=== PATIENT | male | born 1990 | race Caucasian/White ===

== ENCOUNTER 2022-02-24 15:16 | Emergency (ER) | payer OTHER ==
[2022-02-24] MEDS ORDERED: SODIUM CHLORIDE 0.9% 1,000 ML IV STA (16:14)
[2022-02-24] MEDS ORDERED: LORazepam 2 MG/ML INJ IV PRN ×3 (16:15)
[2022-02-24] MEDS ORDERED: THIAMINE 100 MG/ML 2 ML VIAL IM STA (16:15)
[2022-02-24 17:01] LABS: Basophils # (A) 0.1 k/uL (0-0.2); Basophils % (A) 1 %; Eosinophils % (A) 0 %; HCT 50.8 % (39.0-53.0); HGB 16.6 gm/dL (13.0-17.5); Lymphocytes # (A) 1.7 k/uL (1.0-4.8); Lymphocytes % (A) 14 %; MCH 33.4 pg (25.0-35.0); MCHC 32.7 g/dL (31.0-37.0); MCV 102.1 fL (80.0-100.0); Monocytes # (A) 0.7 k/uL (0-1.0); Monocytes % (A) 6 %; Neutrophils # (A) 9.2 k/uL (1.3-7.7); Neutrophils % (A) 77 %; Platelet Count 154 k/uL (150-450); RBC 4.98 m/uL (4.30-5.90); WBC 11.9 k/uL (3.8-10.6)
[2022-02-24 17:10] LABS: ALT 36 U/L (4-49); AST 65 U/L (17-59); African American GFR (CKD) >90 (>60 ml/min/1.73 sqM); Albumin 5.1 g/dL (3.5-5.0); Alkaline Phosphatase 65 U/L (38-126); Anion Gap 19 mmol/L; Blood Urea Nitrogen 12 mg/dL (9-20); Calcium 9.8 mg/dL (8.4-10.2); Carbon Dioxide 21 mmol/L (22-30); Chloride 101 mmol/L (98-107); Glucose 118 mg/dL (74-99); Lipase 187 U/L (23-300); Magnesium 1.7 mg/dL (1.6-2.3); Non-African American GFR(CKD) >90 (>60 ml/min/1.73 sqM); Potassium 3.5 mmol/L (3.5-5.1); Sodium 141 mmol/L (137-145); Total Bilirubin 0.7 mg/dL (0.2-1.3); Total Protein 7.6 g/dL (6.3-8.2)
[2022-02-24 17:19] LABS: Appearance,Urine Clear (Clear); Bilirubin,Urine Negative (Negative); Blood,Urine Small (Negative); Color,Urine Colorless; Glucose,Urine (UA) Negative (Negative); Ketones,Urine Negative (Negative); Leukocyte Esterase,Urine Negative (Negative); Nitrite,Urine Negative (Negative); PH, Urine 6.5 (5.0-8.0); Protein,Urine Negative (Negative); RBC,Urine <1 /hpf (0-5); Specific Gravity,Urine 1.003 (1.001-1.035); Urobilinogen,Urine <2.0 mg/dL (<2.0); WBC,Urine <1 /hpf (0-5)
[2022-02-24 17:20] VITALS: RESP 16
[2022-02-24] MEDS ORDERED: PANTOPRAZOLE 40 MG/10 ML VIAL IVP STA (17:43)
[2022-02-24 17:49] VITALS: PULSE 70; TEMP 98.7
--- NOTE | 2022-02-24 17:51 | ED ---
General Adult HPI - General Chief complaint: Nausea/Vomiting/Diarrhea Stated complaint: Hematemesis Time Seen by Provider: 02/24/22 15:58 Source: patient Mode of arrival: EMS - History of Present Illness Initial comments: Patient is a 31-year-old male with a past medical history of alcohol use disorder who presents to the emergency department with a chief complaint of vomiting blood. Patient states he was checking himself into [facility] today who sent him here for evaluation. Patient states he has been vomiting blood intermittently for the past 2 weeks. Blood scattered throughout the vomiting and is brown in color. Associated with nausea. Denies abdominal pain and chest pain. Denies blood in the stool. Patient states this issue occurred last year as well and went away on its own. Denies fever, chills, throat pain, back pain. Patient has been drinking a fifth of vodka a day since April. Last drink was this morning. Reports history of delirium tremens. Currently denies visual or auditory hallucinations. Patient has never had a withdrawal seizure. - Related Data Previous Rx's Medication Instructions Recorded Ondansetron Odt [Zofran Odt] 4 mg PO Q8HR PRN #15 tab 02/24/22 Pantoprazole [Protonix] 40 mg PO DAILY #14 tab 02/24/22 Allergies Allergy/AdvReac Type Severity Reaction Status Date / Time No Known Allergies Allergy Verified 02/24/22 15:28 Review of Systems ROS Statement: Those systems with pertinent positive or pertinent negative responses have been documented in the HPI. ROS Other: All systems not noted in ROS Statement are negative. Past Medical History Past Medical History: Hypertension, Seizure Disorder History of Any Multi-Drug Resistant Organisms: None Reported Past Surgical History: No Surgical Hx Reported Past Psychological History: Anxiety, Depression Smoking Status: Current every day smoker Past Alcohol Use History: Abuse, Daily, Heavy Past Drug Use History: Marijuana, Prescription Drug Abuse General Exam General appearance: alert, in no apparent distress Head exam: Present: atraumatic, normocephalic, normal inspection Eye exam: Present: normal appearance, PERRL, EOMI. Absent: scleral icterus, conjunctival injection, periorbital swelling Neck exam: Present: normal inspection, full ROM. Absent: tenderness Respiratory exam: Present: normal lung sounds bilaterally. Absent: respiratory distress, wheezes, rales, rhonchi, stridor, chest wall tenderness Cardiovascular Exam: Present: regular rate, normal rhythm, normal heart sounds. Absent: systolic murmur, diastolic murmur, rubs, gallop, clicks GI/Abdominal exam: Present: soft, normal bowel sounds. Absent: distended, tende rness, guarding, rebound, rigid Extremities exam: Present: other (no tremors ) Neurological exam: Present: alert, oriented X3, CN II-XII intact Psychiatric exam: Present: normal affect, normal mood Skin exam: Present: warm, dry, intact, normal color. Absent: rash Course Vital Signs 02/24/22 02/24/22 02/24/22 15:22 17:19 17:47 Temperature 98.8 F 98.7 F Pulse Rate 110 H 70 Respiratory 18 16 16 Rate Blood Pressure 140/100 132/95 O2 Sat by Pulse 95 100 Oximetry 02/24/22 17:56 Temperature 98.7 F Pulse Rate 70 Respiratory 16 Rate Blood Pressure 130/78 O2 Sat by Pulse 100 Oximetry Medical Decision Making - Medical Decision Making This is a 31-year-old male presenting with hematemesis and alcohol use. Laboratory studies obtained. CIWA scale initiated. Patient is not in alcohol withdrawal yet. Hemoglobin is stable at 16.6. Patient initially presents with high blood pressure and tachycardia however this resolved during emergency stay. Patient did not have any further episodes of vomiting. Patient does not have pain and can be discharged back to [facility]. He'll be sent home with Protonix and Zofran. Discussed alcohol cessation in detail. I will refer him to GI specialist for possible scope. Return parameters discussed. Dr. Cespedes is my attending. - Lab Data Result diagrams: 02/24/22 16:53 02/24/22 16:53 Lab Results 02/24/22 02/24/22 02/24/22 Range/Units 16:00 16:53 16:53 WBC 11.9 H (3.8-10.6) k/uL RBC 4.98 (4.30-5.90) m/uL Hgb 16.6 (13.0-17.5) gm/dL Hct 50.8 (39.0-53.0) % MCV 102.1 H (80.0-100.0) fL MCH 33.4 (25.0-35.0) pg MCHC 32.7 (31.0-37.0) g/dL RDW 12.0 (11.5-15.5) % Plt Count 154 (150-450) k/uL MPV 8.0 Neutrophils % 77 % Lymphocytes % 14 % Monocytes % 6 % Eosinophils % 0 % Basophils % 1 % Neutrophils # 9.2 H (1.3-7.7) k/uL Lymphocytes # 1.7 (1.0-4.8) k/uL Monocytes # 0.7 (0-1.0) k/uL Eosinophils # 0.0 (0-0.7) k/uL Basophils # 0.1 (0-0.2) k/uL Sodium 141 (137-145) mmol/L Potassium 3.5 (3.5-5.1) mmol/L Chloride 101 (98-107) mmol/L Carbon Dioxide 21 L (22-30) mmol/L Anion Gap 19 mmol/L BUN 12 (9-20) mg/dL Creatinine 0.76 (0.66-1.25) mg/dL Est GFR (CKD-EPI)AfAm >90 (>60 ml/min/1.73 sqM) Est GFR (CKD-EPI)NonAf >90 (>60 ml/min/1.73 sqM) Glucose 118 H (74-99) mg/dL Calcium 9.8 (8.4-10.2) mg/dL Magnesium 1.7 (1.6-2.3) mg/dL Total Bilirubin 0.7 (0.2-1.3) mg/dL AST 65 H (17-59) U/L ALT 36 (4-49) U/L Alkaline Phosphatase 65 (38-126) U/L Total Protein 7.6 (6.3-8.2) g/dL Albumin 5.1 H (3.5-5.0) g/dL Lipase 187 (23-300) U/L Urine Color Colorless Urine Appearance Clear (Clear) Urine pH 6.5 (5.0-8.0) Ur Specific [place] 1.003 (1.001-1.035) Urine Protein Negative (Negative) Urine Glucose (UA) Negative (Negative) Urine Ketones Negative (Negative) Urine Blood Small H (Negative) Urine Nitrite Negative (Negative) Urine Bilirubin Negative (Negative) Urine Urobilinogen <2.0 (<2.0) mg/dL Ur Leukocyte Esterase Negative (Negative) Urine RBC <1 (0-5) /hpf Urine WBC <1 (0-5) /hpf Disposition Clinical Impression: Hematemesis, ETOH abuse, Nausea Disposition: HOME SELF-CARE Condition: Good Instructions (If sedation given, give patient instructions): Hematemesis (ED) Additional Instructions: Please take medication as directed. It is very important to stop drinking alcohol. Follow-up with GI specialist who can perform a scope if bleeding continues. Return to the emergency department experience new, concerning, or worsening symptoms. Prescriptions: Pantoprazole [Protonix] 40 mg PO DAILY #14 tab Ondansetron Odt [Zofran Odt] 4 mg PO Q8HR PRN #15 tab PRN Reason: Nausea Is patient prescribed a controlled substance at d/c from ED?: No Referrals: Nonstaff,Physician [Primary Care Provider] - 1-2 days Melanie Baxter MD [STAFF PHYSICIAN] - 1-2 days
[2022-02-24 17:57] VITALS: BP 130/78
[2022-02-25] MEDS ORDERED: THIAMINE 100 MG TAB PO SCH (07:30)
== END 2022-02-24 18:00 | disposition home or self-care (01) ==
LOC: EC 15:16
DX: K92.0 Hematemesis (principal); F10.10 Alcohol abuse, uncomplicated; I10 Essential (primary) hypertension; Z86.69 Personal history of other diseases of the nervous system and sense organs; F17.200 Nicotine dependence, unspecified, uncomplicated
CPT/HCPCS: 36415; 80053; 83690; 83735; 85025; 81001; 99284; 96374; 96361; 96372; J3411; C9113

== ENCOUNTER 2022-03-03 16:52 | Emergency (ER) | payer OTHER ==
[2022-03-03] MEDS ORDERED: LORazepam 2 MG/ML INJ IV STA (17:09)
--- NOTE | 2022-03-03 17:32 | ED ---
General Adult HPI - General Chief complaint: Seizure Stated complaint: Seizure Time Seen by Provider: 03/03/22 17:00 Source: patient, EMS, RN notes reviewed, old records reviewed Mode of arrival: EMS Limitations: no limitations - History of Present Illness Initial comments: This is a 31-year-old male presents emergency Department stating that he isn't a t [facility] for alcohol rehabilitation. Patient states he hasn't drank in 7 days. Patient states he is on Ativan almost daily as an outpatient and when he got to the facility they put him on Ativan protocol which she stopped yesterday. Patient states today's felt shaky all day and eventually had a seizure which he states he has had in the past when he withdraws from alcohol. Patient currently has no complaint. Patient denies headache patient denies numbness weakness. Patient denies any chest pain difficult breathing shortness of breath per patient denies any abdominal pain patient denies nausea vomiting diarrhea. She thinks it's too early to withdrawal from Ativan since he takes it daily prior to getting into the rehabilitation Center - Related Data Home Medications Medication Instructions Recorded Confirmed Acetaminophen [Tylenol] 650 mg PO Q4H PRN 03/03/22 03/03/22 Calcium/Magnesium/Zinc/Vitamin D 1 tab PO TID PRN 03/03/22 03/03/22 334/134/5mg Chlorpheniramine Maleate 4 mg PO Q4H PRN 03/03/22 03/03/22 [Chlor-Trimeton] Citalopram Hydrobromide [CeleXA] 40 mg PO DAILY 03/03/22 03/03/22 Ibuprofen [Motrin Ib] 600 mg PO Q6H PRN 03/03/22 03/03/22 Multivitamins, Thera [Multivitamin 1 tab PO DAILY 03/03/22 03/03/22 (formulary)] Thiamine [Vitamin B-1] 100 mg PO DAILY 03/03/22 03/03/22 Zofran 2mg/Ml Injection 4 mg IM Q6H PRN 03/03/22 03/03/22 amLODIPine [Norvasc] 10 mg PO DAILY 03/03/22 03/03/22 ondansetron HCL [Zofran] 8 mg PO Q6H PRN 03/03/22 03/03/22 traZODone HCL [Desyrel] 50 - 150 mg PO HS 03/03/22 03/03/22 Previous Rx's Medication Instructions Recorded Pantoprazole [Protonix] 40 mg PO DAILY #14 tab 02/24/22 Allergies Allergy/AdvReac Type Severity Reaction Status Date / Time No Known Allergies Allergy Verified 03/03/22 18:09 Review of Systems ROS Statement: Those systems with pertinent positive or pertinent negative responses have been documented in the HPI. ROS Other: All systems not noted in ROS Statement are negative. Past Medical History Past Medical History: Hypertension, Seizure Disorder History of Any Multi-Drug Resistant Organisms: None Reported Past Surgical History: No Surgical Hx Reported Past Psychological History: Anxiety, Depression Smoking Status: Current every day smoker Past Alcohol Use History: Abuse, Daily, Heavy Past Drug Use History: Cocaine, Heroin, IV Drug Use, Marijuana, Methamphetamine, Opiates, Prescription Drug Abuse General Exam - General Exam Comments Initial Comments: GENERAL: Patient is well-developed and well-nourished. Patient is nontoxic and well- hydrated and is in no acute distress. ENT: Neck is soft and supple. No significant lymphadenopathy is noted. Oropharynx is clear. Moist mucous membranes. Neck has full range of motion without evelio citing any pain. EYES: The sclera were anicteric and conjunctiva were pink and moist. Extraocular movements were intact and pupils were equal round and reactive to light. Eyelids were unremarkable. PULMONARY: Unlabored respirations. Good breath sounds bilaterally. No audible rales rhonchi or wheezing was noted. CARDIOVASCULAR: There is a regular rate and rhythm without any murmurs gallops or rubs. ABDOMEN: Soft and nontender with normal bowel sounds. SKIN: Skin is clear with no lesions or rashes and otherwise unremarkable. NEUROLOGIC: Patient is alert and oriented x3. Cranial nerves II through XII are grossly intact. Motor and sensory are also intact. Normal speech, volume and content. Symmetrical smile. MUSCULOSKELETAL: Normal extremities with adequate strength and full range of motion. LYMPHATICS: No significant lymphadenopathy is noted PSYCHIATRIC: Normal psychiatric evaluation. Limitations: no limitations Course Vital Signs 03/03/22 16:55 Temperature 98.6 F Pulse Rate 86 Respiratory 20 Rate Blood Pressure 99/75 O2 Sat by Pulse 98 Oximetry Medical Decision Making - Medical Decision Making Patient had no more seizures while in the emergency department. We called [facility] and they have a Ativan protocol they would like to abdomen for him when he returns and patient does want to return. - Lab Data Result diagrams: 03/03/22 17:34 03/03/22 17:34 Lab Results 03/03/22 03/03/22 Range/Units 17:34 17:34 WBC 10.5 (3.8-10.6) k/uL RBC 3.97 L (4.30-5.90) m/uL Hgb 13.7 (13.0-17.5) gm/dL Hct 41.3 (39.0-53.0) % MCV 104.1 H (80.0-100.0) fL MCH 34.5 (25.0-35.0) pg MCHC 33.1 (31.0-37.0) g/dL RDW 12.3 (11.5-15.5) % Plt Count 200 (150-450) k/uL MPV 7.9 Neutrophils % 77 % Lymphocytes % 10 % Monocytes % 9 % Eosinophils % 2 % Basophils % 0 % Neutrophils # 8.1 H (1.3-7.7) k/uL Lymphocytes # 1.0 (1.0-4.8) k/uL Monocytes # 1.0 (0-1.0) k/uL Eosinophils # 0.2 (0-0.7) k/uL Basophils # 0.0 (0-0.2) k/uL Macrocytosis Slight Sodium 136 L (137-145) mmol/L Potassium 4.1 (3.5-5.1) mmol/L Chloride 103 (98-107) mmol/L Carbon Dioxide 21 L (22-30) mmol/L Anion Gap 12 mmol/L BUN 18 (9-20) mg/dL Creatinine 0.82 (0.66-1.25) mg/dL Est GFR (CKD-EPI)AfAm >90 (>60 ml/min/1.73 sqM) Est GFR (CKD-EPI)NonAf >90 (>60 ml/min/1.73 sqM) Glucose 96 (74-99) mg/dL Calcium 9.6 (8.4-10.2) mg/dL Magnesium 1.8 (1.6-2.3) mg/dL Total Bilirubin 0.4 (0.2-1.3) mg/dL AST 30 (17-59) U/L ALT 32 (4-49) U/L Alkaline Phosphatase 40 (38-126) U/L Total Protein 6.6 (6.3-8.2) g/dL Albumin 4.5 (3.5-5.0) g/dL Disposition Clinical Impression: Alcohol withdrawal seizure Disposition: HOME SELF-CARE Condition: Good Instructions (If sedation given, give patient instructions): Alcohol Withdrawal (ED) Additional Instructions: Patient should go to [facility] immediately placed on their alcohol withdrawal seizure protocol Is patient prescribed a controlled substance at d/c from ED?: No Referrals: Nonstaff,Physician [Primary Care Provider] - 1-2 days Time of Disposition: 19:30
[2022-03-03 17:45] LABS: Basophils % (A) 0 %; Eosinophils # (A) 0.2 k/uL (0-0.7); Eosinophils % (A) 2 %; HCT 41.3 % (39.0-53.0); HGB 13.7 gm/dL (13.0-17.5); Lymphocytes % (A) 10 %; MCH 34.5 pg (25.0-35.0); MCHC 33.1 g/dL (31.0-37.0); MCV 104.1 fL (80.0-100.0); Macrocytosis Slight; Mean Platelet Volume 7.9; Monocytes % (A) 9 %; Neutrophils # (A) 8.1 k/uL (1.3-7.7); Neutrophils % (A) 77 %; Platelet Count 200 k/uL (150-450); RBC 3.97 m/uL (4.30-5.90); RDW 12.3 % (11.5-15.5); WBC 10.5 k/uL (3.8-10.6)
[2022-03-03 18:29] LABS: ALT 32 U/L (4-49); AST 30 U/L (17-59); African American GFR (CKD) >90 (>60 ml/min/1.73 sqM); Albumin 4.5 g/dL (3.5-5.0); Alkaline Phosphatase 40 U/L (38-126); Anion Gap 12 mmol/L; Blood Urea Nitrogen 18 mg/dL (9-20); Calcium 9.6 mg/dL (8.4-10.2); Carbon Dioxide 21 mmol/L (22-30); Chloride 103 mmol/L (98-107); Glucose 96 mg/dL (74-99); Magnesium 1.8 mg/dL (1.6-2.3); Non-African American GFR(CKD) >90 (>60 ml/min/1.73 sqM); Potassium 4.1 mmol/L (3.5-5.1); Sodium 136 mmol/L (137-145); Total Bilirubin 0.4 mg/dL (0.2-1.3); Total Protein 6.6 g/dL (6.3-8.2)
[2022-03-03 19:58] VITALS: RESP 16; TEMP 98.1
[2022-03-03 20:47] VITALS: BP 136/71; PULSE 79
== END 2022-03-03 21:05 | disposition home or self-care (01) ==
LOC: EC 16:52
DX: G40.909 Epilepsy, unspecified, not intractable, without status epilepticus (principal); F10.239 Alcohol dependence with withdrawal, unspecified; I10 Essential (primary) hypertension; F17.200 Nicotine dependence, unspecified, uncomplicated
CPT/HCPCS: 36415; 80053; 83735; 85025; 99285; 96374; J2060